=== PATIENT | male | born 1985 | race Caucasian/White ===

== ENCOUNTER 2020-05-03 02:17 | Emergency (ER) | payer SELFPAY ==
[2020-05-03 02:27] VITALS: BP 109/85; PULSE 91; RESP 16; TEMP 36.7; O2SAT 96; BMI 23.3
--- NOTE | 2020-05-03 02:29 | XRR_ITS ---
PROCEDURE INFORMATION: Exam: XR Right Hand Exam date and time: 05/03/2020 2:30 AM Age: 34 years old Clinical indication: Injury or trauma; Injury history: Punched window; Initial encounter; Blunt trauma (contusions or hematomas; Hand; Right TECHNIQUE: Imaging protocol: XR Right hand. Views: 3 or more views. COMPARISON: No relevant prior studies available. FINDINGS: Bones/joints: Normal. Soft tissues: Normal. XR/XR hand RT min 3V* [id number] IMPRESSION: No acute findings.
[2020-05-03 02:43] VITALS: BP 128/80; PULSE 86; RESP 16
--- NOTE | 2020-05-03 03:12 | W.ED.WOUNDLC ---
Documented by User: DAMIAN Ragsdale 05/03/20 03:27 HPI - Wound/Laceration General: Chief Complaint: Wound/Laceration Stated Complaint: R HAND INJURY Time Seen by Provider: 05/03/20 02:36 History of Present Illness: HPI narrative: Patient comes in after striking and breaking the glass at his home. Patient caused a laceration to the dorsal right hand. Patient is intoxicated. Patient appears well. Patient appears in mild pain. Review of Systems General: Reports: 10 or more systems reviewed and unremarkable except in HPI and below Musc: Reports: extremity pain Skin/Breast: Reports: other (Laceration right hand) [facility] ED PFSH: Social History Smoking and tobacco status: current every day smoker Physical Exam Const: COMMON NORMALS: no acute distress and patient oriented x3 GENERAL APPEARANCE: cooperative HENMT: COMMON NORMALS: normocephalic and Normal external nose present HEAD & SCALP: normal to inspection and normocephalic NOSE: Normal external nose present MOUTH: Normal oral and palatal mucosa present Eye: GENERAL EYE: appearance normal, both eyes and all related structures Neck/C-Spine: COMMON NORMALS: full ROM Chest: COMMONS NORMALS: normal inspection of the chest Resp: COMMON NORMALS: normal respiratory effort EFFORT & INSPECTION: Yes able to speak in complete sentences Cardio: COMMON NORMALS: regular rate and regular rhythm RATE: regular rate RHYTHM: regular rhythm GI: COMMON NORMALS: non-tender Back/Pelvis: COMMON NORMALS: thoracic and lumbar spine normal to inspection Extremity: NARRATIVE EXTREMITY EXAM: Laceration to the dorsal right hand. Exam of the wound notes tendon structure with full laceration. Patient is unable to extend the index finger of the right hand. Neuro: COMMON NORMALS: patient oriented x3 and moves all extremities Psych: COMMON NORMALS: mental status grossly normal and cooperative Skin: COMMON NORMALS: no rashes or lesions noted GENERAL SKIN EXAM: no rashes or lesions noted Procedures Laceration Laceration 1: Site: hand Side (If applicable): right Size (cm): 4 Description: flap Depth: simple, single layer and involves tendon Local Anesthetic: lidocaine 1% Amount of anesthesia used (mL): 6 Pre-repair: wound explored and irrigated extensively Skin layer closed with: nylon Size (cm): 5-0 Number of sutures: 6 Technique: simple, interrupted Course ED course: , Dr. James was consulted for concerns of tendon injury to the right hand. He agreed with assessment that extensor tendon was lacerated. He recommended going ahead and loosely closing wound and he would consult a hand surgeon for follow-up. wjw Vital Signs: Vital signs: Vital Signs Temperature 98.1 F 05/03/20 02:27 Pulse Rate 102 H 05/03/20 04:09 Respiratory Rate 24 H 05/03/20 04:09 Blood Pressure 128/80 05/03/20 02:43 Pulse Oximetry 96 05/03/20 04:09 MDM - Wound/Laceration MDM Narrative: Medical decision making narrative: Patient comes in today for complaints of injury to the right dorsal hand. Patient sustained a laceration when he put his hand through a glass window. On exam we noted extensor tendon injury to the right hand affecting the extension of the index finger. Capillary refill is intact. Exam was impeded by patient's intoxication. Pulses were noted at the radial. No bony injury was noted. Differential diagnosis includes laceration, tendon injury, foreign body. Examined wound did not note any foreign body or bony injury. It was noted that patient had a tendon injury seems to be affecting the index finger of the hand. Patient is unable to extend the index finger. Wound was loosely closed. Dr. James was consulted and he will talk with a hand surgeon for patient follow-up. Patient will need follow-up for repair of the tendon. Discharge Plan Discharge Patient Disposition: Home, Self-Care Clinical Impression: Laceration Extensor tendon laceration of wrist with open wound Qualifiers: Encounter type: initial encounter Laterality: right Qualified Code(s): S66.921A - Laceration of unspecified muscle, fascia and tendon at wrist and hand level, right hand, initial encounter Condition: Stable Prescriptions: [place] 5-325 mg tablet 1 tab PO Q6H PRN (Reason: pain) Qty: 10 RF: 0 Discharge Orders: Discharge Order (Routine); Ordered 05/03/20 Ordered By: Catrachito James Discharge Diet: Usual diet Discharge Activity: Limit activity as instructed Patient Instructions: Laceration (ED) Activity Restrictions/Additional Instructions: Stay in your splint until seen by hand surgery. Return for continued bleeding, worsening pain despite treatment, other concerning symptoms. Ice for pain and swelling. You will get a call from the emergency hand surgery clinic at the beginning of the week regarding surgery appointment for later in the week to fix your wrist tendons. If you do not hear from them, call the ER caseworker intake at [phone] and they will be able to put you in touch with hand surgery. Discharge Date/Time: 05/03/20 03:50 Coding Level of Care Code ED Truck Driver Rubbish Collector for Bettina Fwd Exam Comprehensive Documented by User: Catrachito James, 05/04/20 07:07 HPI - Wound/Laceration General: Chief Complaint: Wound/Laceration Stated Complaint: R HAND INJURY Time Seen by Provider: 05/03/20 02:36 PFSH ED PFSH: Social History Smoking and tobacco status: current every day smoker Course Vital Signs: Vital signs: Vital Signs Temperature 98.1 F 05/03/20 02:27 Pulse Rate 102 H 05/03/20 04:09 Respiratory Rate 24 H 05/03/20 04:09 Blood Pressure 128/80 05/03/20 02:43 Pulse Oximetry 96 05/03/20 04:09 MDM - Wound/Laceration MDM Narrative: Medical decision making narrative: This patient was originally seen by DAMIAN Simons. I agree with his history, assessment, and treatment. The wound was closed loosely, as the ECRL and ECRB tendons appear to be severed, with the inability to extend the second and third digits. Hand surgery in [place] was consulted. Dr. Mensah at [facility] agreed with treatment plan here, asked us to splint the patient in extension which is done, and have him follow-up as an outpatient for tendon repair early in the coming week. This will be arranged through [facility] case management. This was explained to the patient, and his family member apparent in the room. Discharge Plan Discharge Patient Disposition: Home, Self-Care Clinical Impression: Laceration Extensor tendon laceration of wrist with open wound Qualifiers: Encounter type: initial encounter Laterality: right Qualified Code(s): S66.921A - Laceration of unspecified muscle, fascia and tendon at wrist and hand level, right hand, initial encounter Condition: Stable Prescriptions: [place] 5-325 mg tablet 1 tab PO Q6H PRN (Reason: pain) Qty: 10 RF: 0 Discharge Orders: Discharge Order (Routine); Ordered 05/03/20 Ordered By: Catrachito James Discharge Diet: Usual diet Discharge Activity: Limit activity as instructed Patient Instructions: Laceration (ED) Activity Restrictions/Additional Instructions: Stay in your splint until seen by hand surgery. Return for continued bleeding, worsening pain despite treatment, other concerning symptoms. Ice for pain and swelling. You will get a call from the emergency hand surgery clinic at the beginning of the week regarding surgery appointment for later in the week to fix your wrist tendons. If you do not hear from them, call the ER caseworker intake at [phone] and they will be able to put you in touch with hand surgery. Discharge Date/Time: 05/03/20 03:50 Coding Level of Care Code ED Truck Driver Rubbish Collector for Bettina Fwmelisa Exam Comprehensive
--- NOTE | 2020-05-03 03:50 | PC.NURSE ---
Pt extremely combative, making verbal threats to swing at you people if you keep making it hurt when pressure applied to control bleeding or to apply volar splint
[2020-05-03 04:09] VITALS: PULSE 102; RESP 24; O2SAT 96
== END 2020-05-03 03:50 | disposition home or self-care (01) ==
PROVIDERS: Emergency Provider Emergency Medicine
DX: S61.411A Laceration without foreign body of right hand, initial encounter (principal); S66.320A Laceration of extensor muscle, fascia and tendon of right index finger at wrist and hand level, initial encounter; W25.XXXA Contact with sharp glass, initial encounter; F17.210 Nicotine dependence, cigarettes, uncomplicated
CPT/HCPCS: 12002; 12345; 73130; 99281; 99283

== ENCOUNTER 2020-05-14 17:35 | Emergency (ER) | payer SELFPAY ==
--- NOTE | 2020-05-14 17:36 | USR_ITS ---
PROCEDURE INFORMATION: Exam: US Scrotum Exam date and time: 05/14/2020 6:12 PM Age: 34 years old Clinical indication: Scrotum pain; Additional info: Testicle pain TECHNIQUE: Imaging protocol: Real-time ultrasound of the scrotum and contents with color Doppler and image documentation. COMPARISON: No relevant prior studies available. FINDINGS: Right testicle: Normal. No mass. No torsion. Normal vascular flow. Right testicle 4.1 cm x 2.6 cm x 3 cm. Left testicle: Normal. No mass. No torsion. Normal vascular flow. Left testicle 4.6 cm x 2.2 cm x 2.8 cm Epididymides: Normal. Right 7 mm x 13 mm, increased vascular flow right side if patient's clinical syndrome is in this area this finding may reflect epididymitis. left 3.8 mm x 6.5 mm Scrotum: Bilateral varicoceles bilateral hydrocele US/US scrotum [id number] IMPRESSION: 1. Negative for intrinsic testicular abnormality. 2. Bilateral hydrocele 3. Bilateral varicocele 4. Increased flow right epididymis possible epididymitis
[2020-05-14 17:39] VITALS: BP 144/83; PULSE 88; RESP 18; TEMP 36.9; O2SAT 98; BMI 24.1
--- NOTE | 2020-05-14 17:43 | ED_ITS ---
HPI - Male Genitourinary General: Chief complaint: Urogenital-Male Stated complaint: left testicle pain Time Seen by Provider: 05/14/20 17:39 Source: patient Mode of arrival: ambulatory Limitations: no limitations History of Present Illness: HPI Narrative: 34-year-old male states he had slight testicle pain and swelling over the last 2 days. He states is bilateral but worse on the right. He denies any fevers. He denies any dysuria. MD Complaint: testicle pain and testicle swelling Onset (ago): hour(s) Duration: constant Location: left testicle Severity: moderate Severity scale (1-10): 7 Quality: sharp Relieving factors: none Exacerbating factors: none Associated symptoms: Deny nausea or vomiting Review of Systems Const: Denies: fever(s), chills, body aches or change in appetite Eyes: Denies: blurry vision or eye discomfort ENMT: Denies: throat pain or dental pain Card: Denies: chest pain Resp: Denies: dyspnea GI: Denies: abdominal pain, nausea, vomiting or diarrhea : Reports: testicular pain and scrotal swelling Musc: Denies: neck pain or back pain Skin/Breast: Denies: rash Neuro: Denies: headache(s) Psych: Denies: depression Shola/Lymph: Denies: easy bruising All/Imm: Denies: urticaria PFSH ED PFSH: Social History Smoking and tobacco status: current every day smoker Physical Exam Const: COMMON NORMALS: no acute distress, patient oriented x3 and healthy appearing HENMT: COMMON NORMALS: normocephalic and atraumatic HEAD & SCALP: normocephalic and atraumatic Eye: COMMON NORMALS: Equal, round and reactive pupils present and EOMs intact bilaterally PUPIL: Yes Equal, round and reactive pupils present Neck/C-Spine: COMMON NORMALS: full ROM and supple Chest: COMMONS NORMALS: normal inspection of the chest and normal palpation of entire chest wall Resp: COMMON NORMALS: normal respiratory effort, No retractions, No use of accessory muscles and clear to auscultation bilaterally AUSCULTATION: clear to auscultation bilaterally Cardio: COMMON NORMALS: regular rate, regular rhythm and No murmurs present (Cardio) RATE: regular rate RHYTHM: regular rhythm GI: COMMON NORMALS: Normal to inspection, nondistended, normoactive bowel sounds present, Soft to palpation, non-tender and no masses PALPATION: Yes Soft to palpation : OTHER: tenderness and swelling in left testicle Extremity: COMMON NORMALS: normal to inspection and full ROM Neuro: COMMON NORMALS: patient oriented x3, moves all extremities and no focal motor deficits Psych: COMMON NORMALS: mental status grossly normal, Normal thought process present and cooperative THOUGHT PROCESS: Normal thought process present Skin: COMMON NORMALS: no rashes or lesions noted and no wounds GENERAL SKIN EXAM: no rashes or lesions noted Course Vital Signs: Vital signs: Vital Signs Temperature 98.4 F 05/14/20 17:39 Pulse Rate 90 05/14/20 18:18 Respiratory Rate 16 05/14/20 18:18 Blood Pressure 127/66 05/14/20 18:18 Pulse Oximetry 98 05/14/20 18:18 MDM - Male MDM Narrative: Medical decision making narrative: Patient presents here with testicle pain. Ultrasound shows hydrocele along with slight epididymitis. Patient's exam here is benign has no signs of torsion. Will place patient on doxycycline along with pain meds. Patient is return if worsening. Lab Data: Labs: Lab Results 05/14/20 Range/Units 18:08 Urine Color Straw (Yellow) Urine Appearance Clear (CLEAR) Urine pH 7 (5-7) Ur Specific Gravit y 1.005 (1.005-1.030) Urine Protein Neg (Negative) Urine Glucose (UA) Norm (Normal) Urine Ketones Negative (Negative) Urine Blood 2+ H (Negative) Urine Nitrate Negative (Negative) Urine Bilirubin Neg (NEGATIVE) Urine Urobilinogen Norm (Negative) mg/dL Ur Leukocyte Lulu ase Negative (Negative) Urine RBC 0-4 H (0-2) /hpf Urine WBC 0-4 H (0-5) /hpf Ur Squamous Epith Cells 0-4 H (0-5) Amorphous Sediment Not Reportable Urine Bacteria Trace (NONE) Imaging Data: us testicle: Attestation: I personally reviewed and interpreted this imaging study as follows: Radiologist's impression: [address] [address] Ultrasound Report Signed Patient: Ji Santiago Unit #: [id number] : 1985 Age/Sex: 34 / M ADM Date: 05/14/20 Loc: ER Room/Bed: Attending Dr: Ordering Provider/Ordering MD: Lucho Oliver MD Date of Service: 05/14/20 Procedure(s): US scrotum [id number] Accession Number(s): [id number] Report Number: [id number] PROCEDURE INFORMATION: Exam: US Scrotum Exam date and time: 05/14/2020 6:12 PM Age: 34 years old Clinical indication: Scrotum pain; Additional info: Testicle pain TECHNIQUE: Imaging protocol: Real-time ultrasound of the scrotum and contents with color Doppler and image documentation. COMPARISON: No relevant prior studies available. FINDINGS: Right testicle: Normal. No mass. No torsion. Normal vascular flow. Right testicle 4.1 cm x 2.6 cm x 3 cm. Left testicle: Normal. No mass. No torsion. Normal vascular flow. Left testicle 4.6 cm x 2.2 cm x 2.8 cm Epididymides: Normal. Right 7 mm x 13 mm, increased vascular flow right side if patient's clinical syndrome is in this area this finding may reflect epididymitis. left 3.8 mm x 6.5 mm Scrotum: Bilateral varicoceles bilateral hydrocele US/US scrotum [id number] IMPRESSION: 1. Negative for intrinsic testicular abnormality. 2. Bilateral hydrocele 3. Bilateral varicocele 4. Increased flow right epididymis possible epididymitis Discharge Plan Discharge Patient Disposition: Home, Self-Care Clinical Impression: Hydrocele of testis, Epididymitis Condition: Stable Prescriptions: [place] 5-325 mg tablet 1 tab PO Q6H PRN (Reason: pain) Qty: 14 RF: 0 doxycycline hyclate 100 mg capsule 100 mg PO BID 7 Days Qty: 14 RF: 0 No [place] 5-325 mg tablet 1 tab PO Q6H PRN (Reason: pain) Qty: 10 RF: 0 Discharge Orders: Discharge Order (Routine); Ordered 05/14/20 Ordered By: Lucho Oliver Referrals: Puja Carter FNP [Primary Care Provider] - Sammy Schuler MD [Physician] - 1-3 days Discharge Diet: Advance as tolerated Discharge Activity: Resume usual activity Patient Instructions: Epididymitis (ED) Coding Level of Care Code ED Kids [employer] Attendant for Chg Fwd Exam Comprehensive
[2020-05-14 18:09] VITALS: RESP 18; O2SAT 94
[2020-05-14] MEDS: morphine 4 mg/mL SDV 1 mL IM (18:09)
[2020-05-14 18:18] VITALS: BP 127/66; PULSE 90; RESP 16; O2SAT 98
--- NOTE | 2020-05-14 18:20 | PC.NURSE ---
pc to atif jaimes he stated that morhpine in er pyxis is able to be adm via im.
[2020-05-14 18:42] LABS: Add Urine Microscopic? YES; Bilirubin Urine Neg (NEGATIVE); Blood Urine 2+ (Negative); Glucose Urine UA Norm (Normal); Ketones Urine Negative (Negative); Leukocyte Esterase Urine Negative (Negative); Nitrate Urine Negative (Negative); Protein Urine Neg (Negative); Specific Gravity, Urine 1.005 (1.005-1.030); Urine Appearance Clear (CLEAR); Urine Color Straw (Yellow); Urobilinogen Urine Norm (Negative); pH Urine 7 (5-7)
[2020-05-14 18:43] LABS: Add Urine Culture? No; Bacteria Urine TRACE; RBC Urine 0-4 /hpf (0-2); Squamous Epithelial Cell Urine 0-4 (0-5); WBC Urine 0-4 /hpf (0-5)
--- NOTE | 2020-05-14 19:13 | PC.NURSE ---
report given to maryan shelton assumed care while at bedside pt is in nad.
[2020-05-14 20:01] VITALS: BP 134/72; PULSE 84; RESP 16; O2SAT 93
== END 2020-05-14 20:03 | disposition home or self-care (01) ==
PROVIDERS: Emergency Provider Emergency Medicine; PCP Nurse Practitioner
DX: N43.3 Hydrocele, unspecified (principal); N45.1 Epididymitis; F17.210 Nicotine dependence, cigarettes, uncomplicated
CPT/HCPCS: 12345; 76870; 81001; 81003; 96372; 99282; 99283; J2270

== ENCOUNTER 2020-11-07 16:23 | Emergency (ER) | payer SELFPAY ==
[2020-11-07 17:40] VITALS: BP 133/78; PULSE 93; RESP 18; TEMP 36.3; O2SAT 97; BMI 26.6
--- NOTE | 2020-11-07 17:54 | ED_ITS ---
HPI - Wound/Laceration General: Chief Complaint: Wound/Laceration Stated Complaint: WOUND/LACERATION Time Seen by Provider: 11/07/20 17:53 Source: patient Mode of arrival: ambulatory Limitations: no limitations History of Present Illness: HPI narrative: Patient comes in today with injuries to the right and left hand. Patient reports that he had slipped and fell putting his hand through a window. Patient has several superficial lacerations to both hands. 1 significant 1 to the right index finger. Normal range of motion is noted to the hand and finger. Review of Systems General: Reports: 10 or more systems reviewed and unremarkable except in HPI and below Skin/Breast: Reports: other (laceration) PFSH ED PFSH: Social History Smoking and tobacco status: current every day smoker Physical Exam Const: COMMON NORMALS: no acute distress and patient oriented x3 GENERAL APPEARANCE: cooperative HENMT: COMMON NORMALS: normocephalic and Normal external nose present HEAD & SCALP: normal to inspection and normocephalic NOSE: Normal external nose pr esent MOUTH: Normal oral and palatal mucosa present Eye: GENERAL EYE: appearance normal, both eyes and all related structures Neck/C-Spine: COMMON NORMALS: full ROM Chest: COMMONS NORMALS: normal inspection of the chest Resp: COMMON NORMALS: normal respiratory effort EFFORT & INSPECTION: Yes able to speak in complete sentences Cardio: COMMON NORMALS: regular rate and regular rhythm RATE: regular rate RHYTHM: regular rhythm GI: COMMON NORMALS: non-tender Extremity: COMMON NORMALS: normal to inspection Neuro: COMMON NORMALS: patient oriented x3 and moves all extremities Psych: COMMON NORMALS: mental status grossly normal and cooperative Skin: COMMON NORMALS: no rashes or lesions noted NARRATIVE SKIN EXAM: 2 significant lacerations to the right hand. One 3 cm laceration to the ulnar side of the right index finger. And one 1.5 cm laceration to the third knuckle of the right hand. Patient also has 2 superficial lacerations to the index finger on the left hand and the knuckle of the third digit on the left hand. GENERAL SKIN EXAM: no rashes or lesions noted Procedures Laceration Laceration 1: Site: hand Side (If applicable): right Size (cm): 3 Description: linear Depth: simple, single layer Local Anesthetic: lidocaine 1% Amount of anesthesia used (mL): 5 Pre-repair: wound explored and deep structures intact Size (cm): 5-0 Number of sutures: 7 Technique: simple, interrupted Laceration 2: Site: hand Side (If applicable): right Size (cm): 1.5 Description: linear Depth: simple, single layer Local Anesthetic: lidocaine 1% Amount of anesthesia used (mL): 2 Pre-repair: wound explored and irrigated extensively Skin layer closed with: nylon Size (cm): 5-0 Number of sutures: 3 Technique: simple, interrupted Laceration 3: Site: hand Side (If applicable): left Size (cm): 1 Description: linear Local Anesthetic: lidocaine 1% Amount of anesthesia used (mL): 1 Skin layer closed with: nylon Size (cm): 5-0 Number of sutures: 1 Technique: simple, interrupted Laceration 4: Site: hand Side (If applicable): left Size (cm): 1 Description: linear Depth: simple, single layer Local Anesthetic: lidocaine 1% Amount of anesthesia used (mL): 1 Pre-repair: wound explored Skin layer closed with: nylon Size (cm): 5-0 Number of sutures: 1 Technique: simple, interrupted Course Vital Signs: Vital signs: Vital Signs Temperature 97.3 F L 11/07/20 17:40 Pulse Rate 93 11/07/20 17:40 Respiratory Rate 18 11/07/20 17:40 Blood Pressure 133/78 11/07/20 17:40 Pulse Oximetry 97 11/07/20 17:40 MDM - Wound/Laceration MDM Narrative: Medical decision making narrative: Patient presents with injury to the right and left hand. Patient's hands both went through the window of a door. On exam patient has some superficial lacerations to the left hand. And then a more significant laceration to the right index finger and 2 other superficial lacerations to the right hand. Wounds were repaired with 5-0 nylon suture. Patient tolerated well. Patient will be placed on cephalexin for prophylaxis antibiotic. And medication for discomfort. Patient reported understanding of care plan and need for follow-up. Discharge Plan Discharge Patient Disposition: Home Clinical Impression: Laceration Condition: Stable Prescriptions: New cephalexin 500 mg capsule 500 mg PO TID 7 Days Qty: 21 RF: 0 Continued [place] 5-325 mg tablet 1 tab PO Q6H PRN (Reason: pain) Qty: 10 RF: 0 Discontinued hydrocodone-acetaminophen [[place]] 5-325 mg tablet 1 tab PO Q6H PRN (Reason: pain) Qty: 14 RF: 0 Discharge Orders: Discharge ED (Routine); Ordered 11/07/20 Ordered By: Emery Szymanski Referrals: Puja Carter FNP [Primary Care Provider] - Discharge Diet: Usual diet Patient Instructions: Suture Care (ED) Activity Restrictions/Additional Instructions: Keep wounds clean and dry for the next 48 hours. Avoid wound getting wet or soiled while sutures are in. Sutures out in 7 to 10 days. Follow-up with primary care for further evaluation and treatment. Return to the emergency department for new concerns. Stand Alone Forms: Work/School Release Coding Level of Care Code ED Broadcast Transmitter Operator for Bettina Fwd Exam Comprehensive
[2020-11-07 18:27] VITALS: PULSE 80; O2SAT 96
[2020-11-07] MEDS: lidocaine 1% INJ 20 mL INJECTION (18:30)
[2020-11-07 18:37] VITALS: PULSE 80; O2SAT 98
== END 2020-11-07 18:39 | disposition home or self-care (01) ==
PROVIDERS: Emergency Provider Nurse Practitioner Family; PCP Nurse Practitioner
DX: S61.412A Laceration without foreign body of left hand, initial encounter (principal); S61.411A Laceration without foreign body of right hand, initial encounter; S61.210A Laceration without foreign body of right index finger without damage to nail, initial encounter; S61.211A Laceration without foreign body of left index finger without damage to nail, initial encounter; W01.110A Fall on same level from slipping, tripping and stumbling with subsequent striking against sharp glass, initial encounter; F17.210 Nicotine dependence, cigarettes, uncomplicated
CPT/HCPCS: 12002; 12345; 99281; 99282; 99291

== ENCOUNTER 2020-12-06 00:22 | Emergency (ER) | payer SELFPAY ==
[2020-12-06 00:32] VITALS: BP 113/63; PULSE 79; RESP 17; TEMP 36.6; O2SAT 96; BMI 26.6
--- NOTE | 2020-12-06 00:44 | XRR_ITS ---
PROCEDURE INFORMATION: Exam: XR Chest, 1 View Exam date and time: 12/06/2020 12:46 AM Age: 35 years old Clinical indication: Patient HX: Syncopal episode. Cough. ETOH. Best film obtained. Additional info: Syncope, cough. TECHNIQUE: Imaging protocol: XR of the chest Views: 1 view. COMPARISON: No relevant prior studies available. FINDINGS: Lungs: Unremarkable. No consolidation. Pleural spaces: Unremarkable. No pleural effusion. No pneumothorax. Heart/Mediastinum: Unremarkable. No cardiomegaly. Bones/joints: No emergent findings identified. XR/XR chest 1V portable [id number] IMPRESSION: 1. No acute findings.
--- NOTE | 2020-12-06 00:46 | XRR_ITS ---
PROCEDURE INFORMATION: Exam: XR Right Hand Exam date and time: 12/06/2020 1:03 AM Age: 35 years old Clinical indication: Injury or trauma; Fall; Blunt trauma (contusions or hematomas); Prior surgery; Patient HX: Sustained blow to right hand this AM swelling to ventral surface of hand. History of abscess formation and extensor tendonitis. ETOH best positioning obtained. TECHNIQUE: Imaging protocol: XR Right hand. Views: 3 or more views. COMPARISON: CR XR hand RT min 3V* [id number] 05/03/2020 3:14 AM FINDINGS: Bones/joints: No fractures or dislocations identified. No significant bony abnormality identified. Soft tissues: No subcutaneous gas or radiopaque foreign body identified. XR/XR hand RT min 3V* [id number] IMPRESSION: 1. No acute findings.
[2020-12-06 01:08] LABS: Basophils # 0.1 10^3/uL (0.0-0.1); Basophils % 0.8 %; Eosinophils # 0.1 10^3/uL (0.0-0.8); Eosinophils % 1.2 %; Hematocrit 48.8 % (42.0-52.0); Hemoglobin 15.7 g/dL (11.7-16.6); Lymphocytes # 3.8 10^3/uL (0.8-4.8); Lymphocytes % 42.6 %; Mean Corpuscular HGB Conc 32.2 g/dL (30.0-36.0); Mean Corpuscular Hemoglobin 27.1 pg (28.0-34.0); Mean Corpuscular Volume 84.1 fL (80-94); Mean Platelet Volume 10.6 fL (7.4-10.4); Monocytes # 0.7 10^3/uL (0.2-0.9); Monocytes % 7.8 %; Neutrophils # 4.23 10^3/uL (1.8-7.7); Neutrophils % 47.3 %; Nucleated Red Blood Cells % 0 %; Platelet Count 312 10^3/cmm (130-400); Red Cell Distribution Width 13.2 % (12.1-15.1)
[2020-12-06] MEDS: morphine 4 mg/mL SDV 1 mL IVP (01:25)
[2020-12-06 01:26] VITALS: PULSE 85; RESP 16; O2SAT 98
[2020-12-06] MEDS: albuterol 8 gm MDI 4 PUFF INHALATION (01:26)
[2020-12-06] MEDS: ondansetron 2 mg/ML SDV 2 mL 4 MG IVP (01:30)
[2020-12-06 01:39] VITALS: PULSE 87
[2020-12-06] MEDS: sodium chloride 0.9% 1,000 ML 999 ML IV (01:40)
--- NOTE | 2020-12-06 02:06 | ED_ITS ---
HPI - General Adult General: Chief complaint: General Medical Stated complaint: etoh and syncope Time Seen by Provider: 12/06/20 00:28 History of Present Illness: HPI narrative: 35-year-old male presenting with acute alcohol intoxication, and a syncopal episode. His fianc?e states that he had had a syncopal episode, associated with coughing which concerned her. Evidently, something had fallen on his hand earlier in the evening causing him pain. He has previous injury to this hand with some chronic pain to the hand as well as well as some swelling. Because of the pain, the patient drank some alcohol. He had begun coughing earlier in the evening, and vomited a couple of times. During one of his coughing spells, he passed out for several seconds. That is when paramedics were called. He is somewhat cantankerous on interview, and not wanting to answer questions Onset (ago): hour(s) Location: upper extremity Severity: moderate Quality: aching Pain Consistency: constant Associated symptoms: Reports cough, nausea and vomiting; Deny chest pain, dyspnea, fevers/chills, headache(s), palpitations or short of breath Review of Systems Const: Denies: fever(s) or chills Eyes: Denies: change in vision Card: Denies: chest pain or palpitations Resp: Denies: dyspnea GI: Reports: nausea and vomiting Neuro: Denies: headache(s) PFSH ED PFSH: Social History Smoking and tobacco status: current every day smoker Physical Exam Const: EXAM LIMITATIONS: behavioral limitations GENERAL APPEARANCE: odor of alcohol detected; not ill appearing Chest: COMMONS NORMALS: normal inspection of the chest Resp: COMMON NORMALS: normal respiratory effort, No retractions and No use of accessory muscles AUSCULTATION: no crackles, no rales, no rhonchi and wheezes Cardio: COMMON NORMALS: regular rate, regular rhythm and No murmurs present (Cardio) RATE: regular rate RHYTHM: regular rhythm GI: COMMON NORMALS: Normal to inspection, nondistended, normoactive bowel sounds present and Soft to palpation PALPATION: Yes Soft to palpation Extremity: NARRATIVE EXTREMITY EXAM: Examination right hand reveals some swelling of the dorsum of the hand. There is surgical scarring in the area. There is no cellulitic change. No rotational deformity. There is some limitation on flexion, which is chronic. Neuro: COMMON NORMALS: no focal motor deficits SPEECH: Other neuro speech findings Psych: ATTITUDE: Yes Guarded attititude/behavior present and Yes Belligerent attititude/behavior present ACTIVITY/MOTOR BEHAVIOR: Yes psychomotor slowing SPEECH: Yes slurred MOOD & AFFECT: Yes irritable THOUGHT PROCESS: Ci rcumstantial thought process present Course Vital Signs: Vital signs: Vital Signs Temperature 97.8 F 12/06/20 00:32 Pulse Rate 87 12/06/20 01:39 Respiratory Rate 16 12/06/20 01:26 Blood Pressure 113/63 12/06/20 00:32 Pulse Oximetry 98 12/06/20 01:26 MDM - General Adult MDM Narrative: Medical decision making narrative: 35-year-old intoxicated male. Hand x-rays negative for acute fracture chest x-ray is negative. Patient refused a head CT. His CBC is normal. Other labs are pending. The patient tore out his own IV, the site of which is wrapped. He is not homicidal nonsuicidal. He will be allowed discharge pending benign labs Lab Data: Labs: Lab Results 12/06/20 12/06/20 Range/Units 00:34 00:34 WBC 9.0 (4.0-10.0) 10^3/ uL RBC 5.80 H (4.1-5.3) 10^6/u L Hgb 15.7 (11.7-16.6) g/dL Hct 48.8 (42.0-52.0) % MCV 84.1 (80-94) fL MCH 27.1 L (28.0-34.0) pg MCHC 32.2 (30.0-36.0) g/dL RDW 13.2 (12.1-15.1) % Plt Count 312 (130-400) 10^3/c mm MPV 10.6 H (7.4-10.4) fL Neut % (Auto) 47.3 % Lymph % (Auto) 42.6 % [place] % (Auto) 7.8 % Eos % (Auto) 1.2 % Baso % (Auto) 0.8 % Neut # (Auto) 4.23 (1.8-7.7) 10^3/u L Lymph # (Auto) 3.8 (0.8-4.8) 10^3/u L [place] # (Auto) 0.7 (0.2-0.9) 10^3/u L Eos # (Auto) 0.1 (0.0-0.8) 10^3/u L Baso # (Auto) 0.1 (0.0-0.1) 10^3/u L Nucleated RBC % (a uto) 0 % Nucleated RBCs # 0.0 /100WBC Sodium 142 (136-145) mmol/L Potassium 3.6 (3.5-5.1) mmol/L Chloride 102 (98-107) mmol/L Carbon Dioxide 22 (22-29) mmol/L BUN 8 (6-20) mg/dL Creatinine 1.0 (0.7-1.2) mg/dL Glucose 91 (65-115) mg/dL Calculated Osmolal ity 292 (285-295) mOsm/k g Calcium 9.4 (8.5-10.5) mg/dL Magnesium 2.3 (1.7-2.3) mg/dL Total Bilirubin 0.2 (0.15-1.2) mg/dL AST 21 (0-40) U/L ALT 16 (0-41) U/L Alkaline Phosphata se 85 (40-130) IU/L Total Protein 8.0 (6.6-8.7) g/dL Albumin 4.9 (3.5-5.2) g/dL Globulin 3.1 (1.3-4.6) g/dL Discharge Plan Discharge Patient Disposition: Home Clinical Impression: Alcohol intoxication, Post-tussive syncope Condition: Stable Prescriptions: No Action No Known Home Medications RF: 0 Discharge Orders: Discharge ED (Routine); Ordered 12/06/20 Ordered By: Catrachito James Referrals: Puja Carter FNP [Primary Care Provider] - Discharge Diet: Advance as tolerated Discharge Activity: Increase activity as tolerated Patient Instructions: Syncope (ED), Alcohol Intoxication (ED) Activity Restrictions/Additional Instructions: Make sure you stay hydrated. Return for repeated episodes of syncope or passing out, chest discomfort, shortness of breath, fever greater than 100, other concerning symptoms. Return also for worsening cough. Coding Level of Care Code ED Crop Farm Helper for Chg Fwd Exam Detailed
[2020-12-06 02:13] LABS: Alanine Aminotransferase 16 U/L (0-41); Albumin Level 4.9 g/dL (3.5-5.2); Alkaline Phosphatase 85 IU/L (40-130); Anion Gap 21.6 (5-19); Aspartate Amino Transferase 21 U/L (0-40); Blood Urea Nitrogen 8 mg/dL (6-20); Calcium 9.4 mg/dL (8.5-10.5); Carbon Dioxide 22 mmol/L (22-29); Chloride 102 mmol/L (98-107); Globulin 3.1 g/dL (1.3-4.6); Glomerular Filtration Rate 86.1 mL/min (90-130); Glucose 91 mg/dL (65-115); Magnesium 2.3 mg/dL (1.7-2.3); Osmolality Calculated 292 mOsm/kg (285-295); Potassium 3.6 mmol/L (3.5-5.1); Sodium 142 mmol/L (136-145); Total Bilirubin 0.2 mg/dL (0.15-1.2)
[2020-12-06 02:30] LABS: Alcohol Level 302 mg/dL (0-10)
--- NOTE | 2020-12-06 02:34 | PC.NURSE ---
pt becoming increasingly argumentative, removing IV without staff present. IV site dressed with cotton ball and coban. Pt stating he no longer wishes to stay in ED, requesting to be discharged. notified, ok with pt request for discharge. Pt able to stand and walk without difficulties and answer A&O questions appropriately to self and place. Pt refusing to sign discharge paperwork. Pt able to leave with significant other with out further difficulties or complaints
== END 2020-12-06 02:20 | disposition home or self-care (01) ==
PROVIDERS: Emergency Provider Emergency Medicine; PCP Nurse Practitioner
DX: R05 Cough (principal); R55 Syncope and collapse; F10.129 Alcohol abuse with intoxication, unspecified; Y90.9 Presence of alcohol in blood, level not specified; F17.210 Nicotine dependence, cigarettes, uncomplicated
CPT/HCPCS: 12345; 71045; 73130; 80053; 80307; 83735; 85025; 94640; 96361; 96374; 96375; 99282; 99283; J2270; J2405; J3535; J7030

== ENCOUNTER 2021-02-12 18:37 | Emergency (ER) | payer SELFPAY ==
[2021-02-12 18:45] VITALS: BP 151/112; PULSE 77; RESP 18; TEMP 36.6; O2SAT 96; BMI 27.4
[2021-02-12 20:28] VITALS: BP 153/100; PULSE 89; RESP 17; O2SAT 97
--- NOTE | 2021-02-12 20:47 | ED_ITS ---
HPI - Back Pain/Injury General: Chief Complaint: Back Pain/Injury Stated Complaint: Back Pain Time Seen by Provider: 02/12/21 20:14 Source: patient Mode of arrival: ambulatory Limitations: no limitations History of Present Illness: HPI Narrative: 35-year-old male who presents here with low back pain. States been having back pain over the last 4 to 5 days. States his left lower back and does radiate down to his left leg to the thigh. He states is worse with movement and bending. States is improved with rest. States pain is currently a 4 out of 10. He states he does a lot of lifting at work but does not remember any specific injury. MD elicited complaint: back pain Associated symptoms: Deny abdominal pain, chills, dysuria, fever(s), nausea or vomiting Review of Systems Const: Denies: fever(s), chills, body aches or change in appetite Eyes: Denies: blurry vision or eye discomfort ENMT: Denies: throat pain or dental pain Card: Denies: chest pain Resp: Denies: dyspnea GI: Denies: abdominal pain, nausea, vomiting or diarrhea : Denies: dysuria Musc: Reports: back pain; Denies: neck pain Skin/Breast: Denies: rash Neuro: Denies: headache(s) Psych: Denies: depression Shola/Lymph: Denies: easy bruising All/Imm: Denies: urticaria PFSH ED PFSH: Social History Smoking and tobacco status: current every day smoker Physical Exam Const: COMMON NORMALS: no acute distress, patient oriented x3 and healthy appearing HENMT: COMMON NORMALS: normocephalic and atraumatic HEAD & SCALP: normocephalic and atraumatic Eye: COMMON NORMALS: Equal, round and reactive pupils present and EOMs intact bilaterally PUPIL: Yes Equal, round and reactive pupils present Neck/C-Spine: COMMON NORMALS: full ROM and supple Chest: COMMONS NORMALS: normal inspection of the chest and normal palpation of entire chest wall Resp: COMMON NORMALS: normal respiratory effort, No retractions, No use of accessory muscles and clear to auscultation bilaterally AUSCULTATION: clear to auscultation bilaterally Cardio: COMMON NORMALS: regular rate, regular rhythm and No murmurs present (Cardio) RATE: regular rate RHYTHM: regular rhythm GI: COMMON NORMALS: Normal to inspection, nondistended, normoactive bowel sounds present, Soft to palpation, non-tender and no masses PALPATION: Yes Soft to palpation Back/Pelvis: OTHER: Tenderness over left lower back with no midline tenderness Extremity: COMMON NORMALS: normal to inspection and full ROM Neuro: COMMON NORMALS: patient oriented x3, moves all extremities and no focal motor deficits Psych: COMMON NORMALS: mental status grossly normal, Normal thought process present and cooperative THOUGHT PROCESS: Normal thought process present Skin: COMMON NORMALS: no rashes or lesions noted and no wounds GENERAL SKIN EXAM: no rashes or lesions noted Course Vital Signs: Vital signs: Vital Signs Temperature 97.8 F 02/12/21 18:45 Pulse Rate 89 02/12/21 20:28 Respiratory Rate 17 02/12/21 20:28 Blood Pressure 153/100 02/12/21 20:28 Pulse Oximetry 97 02/12/21 20:28 MDM - Back Pain/Injury MDM Narrative: Medical decision making narrative: Patient presents with low back pain that is likely muscular in nature. Give him stretches for his piriformis. We will place him on Naprosyn and Robaxin he is to ice. He has no signs of mid back pain or epidural abscess. He is stable for discharge and return if worsening. Discharge Plan Discharge Patient Disposition: Home Clinical Impression: Low back pain Qualifiers: Chronicity: acute Back pain laterality: left Sciatica presence: with sciatica Sciatica laterality: sciatica of left side Qualified Code(s): M54.42 - Lumbago with sciatica, left side Condition: Stable Prescriptions: New Robaxin-750 750 mg tablet 750 mg PO Q6H Qty: 30 RF: 0 Naprosyn 500 mg tablet 500 mg PO BID PRN (Reason: pain) Qty: 20 RF: 0 Discharge Orders: Discharge ED (Routine); Ordered 02/12/21 Ordered By: Lucho Oliver Discharge Diet: Advance as tolerated Discharge Activity: Resume usual activity Patient Instructions: Piriformis Syndrome (ED), Back Pain (ED) Coding Level of Care Code ED Production Corrugator for Bettina Zapata
[2021-02-12] MEDS: dexamethasone 10 mg/mL INJ IM (21:36)
[2021-02-12] MEDS: ketorolac 60 mg/2 mL INJ IM (21:36)
[2021-02-12 21:44] VITALS: PULSE 83; RESP 18; O2SAT 98
== END 2021-02-12 21:45 | disposition home or self-care (01) ==
PROVIDERS: Emergency Provider Emergency Medicine
DX: M54.42 Lumbago with sciatica, left side (principal); F17.210 Nicotine dependence, cigarettes, uncomplicated
CPT/HCPCS: 96372; 99283; J1100; J1885

== ENCOUNTER 2021-05-23 13:00 | Emergency (ER) | payer SELFPAY ==
[2021-05-23 13:05] VITALS: BP 136/84; PULSE 91; RESP 16; TEMP 36.7; O2SAT 95; BMI 27.8
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
[2021-05-23] MEDS: bacitracin ointment Pkt 1 EACH TOPICAL (15:47)
== END 2021-05-23 15:48 | disposition home or self-care (01) ==
PROVIDERS: Emergency Provider Physician Assistant
DX: S01.511A Laceration without foreign body of lip, initial encounter (principal); R68.84 Jaw pain; F17.210 Nicotine dependence, cigarettes, uncomplicated; W20.8XXA Other cause of strike by thrown, projected or falling object, initial encounter
CPT/HCPCS: 12011; 70450; 70486; 99283

== ENCOUNTER 2022-05-11 17:46 | Emergency (ER) | payer SELFPAY ==
[2022-05-11 17:57] VITALS: BMI 29.9
[2022-05-11 18:02] VITALS: BP 124/87; PULSE 87; RESP 18; TEMP 37.1; O2SAT 97
--- NOTE | 2022-05-11 19:41 | ED_ITS ---
HPI - Back Pain/Injury General: Chief Complaint: Back Pain/Injury Stated Complaint: Back pain Time Seen by Provider: 05/11/22 18:37 History of Present Illness: 36-year-old male patient comes in today with exacerbation of low back pain. Patient has some problems with his back but 2 da ys ago he was going to stand up from sitting when he had a sudden twinge in the left lower part of his back. Since then he has had difficulty with standing upright. Patient denies any problems with bowel or bladder. Patient reports no fever. Patient appears in moderate pain. Patient appears nontoxic. Review of Systems General: Reports: 10 or more systems reviewed and unremarkable except in HPI and below Card: Denies: chest pain Resp: Denies: dyspnea Musc: Reports: back pain PFS ED PFSH: Social History Smoking and tobacco status: current every day smoker Physical Exam Const: COMMON NORMALS: alert Neck/C-Spine: COMMON NORMALS: full ROM Chest: COMMONS NORMALS: normal inspection of the chest Resp: COMMON NORMALS: normal respiratory effort and clear to auscultation bilaterally AUSCULTATION: clear to auscultation bilaterally Cardio: COMMON NORMALS: regular rate RATE: regular rate Back/Pelvis: LUMBAR SPINE/LOWER BACK: Yes lumbar spinal tenderness Lumbar spinal tenderness location: L5 and Yes paraspinal muscle tenderness Extremity: COMMON NORMALS: normal to inspection NARRATIVE EXTREMITY EXAM: Leg lift test positive left side at 45 degrees Neuro: SENSORIUM/ORIENTATION: Yes alert Skin: COMMON NORMALS: no rashes or lesions noted GENERAL SKIN EXAM: no rashes or lesions noted Course Vital Signs: Vital signs: Vital Signs Temperature 98.8 F 05/11/22 18:02 Pulse Rate 87 05/11/22 18:02 Respiratory Rate 18 05/11/22 18:02 Blood Pressure 124/87 05/11/22 18:02 Pulse Oximetry 97 05/11/22 18:02 MDM - Back Pain/Injury Medical Decision Making 36-year-old male patient comes in with low back pain. On exam patient has muscle tenderness in the lumbar spine bilaterally. Patient also has some bilateral muscle tightness. Patient had more tenderness in the left lower L4-L5 region of the back. Vital signs are normal. Differential diagnosis includes but not limited to facet arthropathy, intervertebral disc disease, lumbar strain. No signs of cauda equina was noted on exam. Believe the patient probably has a lumbar strain and may be some chronic intervertebral disc disease that he should have followed up with outpatient. Patient was treated with pain meds for control. Patient was recommended to follow-up with primary care but reported understanding. Discharge Plan Discharge Patient Disposition: Home Clinical Impression: Strain of lumbar region Qualifiers: Encounter type: initial encounter Qualified Code(s): S39.012A - Strain of muscle, fascia and tendon of lower back, initial encounter Condition: Stable Prescriptions: New diclofenac potassium 50 mg tablet 50 mg PO TID Qty: 15 0RF hydrocodone-acetaminophen 5-325 mg tablet 1 tab PO Q6H PRN (Reason: pain (scale score 7-10)) Qty: 7 0RF tizanidine 4 mg tablet 4 mg PO TID Qty: 15 0RF No Action neomycin-polymyxin B-dexameth [Maxitrol] 3.5mg/mL-10,000 unit/mL-0.1 % drops,suspension 2 drp ophthalmic (eye) QID 7 Days Qty: 5 0RF Rx Instructions: Route-Ears to treat Otits Externa Discharge Orders: Discharge ED (Routine); Ordered 05/11/22 Ordered By: Emery Szymanski Discharge Diet: Usual diet Discharge Activity: Increase activity as tolerated Patient Instructions: Low Back Strain (ED), Lower Back Exercises (ED), Opioid Safety Activity Restrictions/Additional Instructions: Activity as tolerated. Gentle stretching and range of motion activities. Is important to resume normal activity as soon as possible. Drink plenty of water with medication. Use acetaminophen with the diclofenac to control the pain. Use tizanidine for muscle spasms. Use hydrocodone for severe pain. Do not use hydrocodone while driving or operating any equipment where you may injure yourself or others. Follow-up with primary care in 2 days for recheck. Return to ER for worsening symptoms or new concerns. Stand Alone Forms: Work/School Release Coding Level of Care Code ED Crater And Packer for Bettina Zapata
[2022-05-11] MEDS: dexamethasone 10 mg/mL INJ IM (20:47)
[2022-05-11] MEDS: ketorolac 30 mg/mL INJ IM (20:48)
[2022-05-11] MEDS: orphenadrine 30 mg/mL Inj 2 mL 60 MG IM (20:48)
== END 2022-05-11 21:29 | disposition home or self-care (01) ==
PROVIDERS: Emergency Provider Nurse Practitioner Family
DX: S39.012A Strain of muscle, fascia and tendon of lower back, initial encounter (principal); F17.210 Nicotine dependence, cigarettes, uncomplicated; X58.XXXA Exposure to other specified factors, initial encounter
CPT/HCPCS: 96372; 99284; J1100; J1885; J2360

== ENCOUNTER 2022-08-07 06:54 | Emergency (ER) | payer OTHER, SELFPAY ==
[2022-08-07 06:56] VITALS: BP 157/102; PULSE 98; RESP 18; TEMP 36.4; O2SAT 97
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
[2022-08-07 07:27] VITALS: BP 139/94; PULSE 90; RESP 16; O2SAT 98
[2022-08-07 07:35] LABS: Bilirubin Urine Negative (Negative); Blood Urine Small (Negative); Glucose Urine UA Negative (Normal); Ketones Urine Negative (Negative); Leukocyte Esterase Urine Negative (Negative); Nitrate Urine Negative; Protein Urine Negative; Urine Appearance Clear (CLEAR); Urobilinogen Urine 0.2 mg/dL (Negative)
[2022-08-07 07:45] LABS: Urine Color Light Yellow (Yellow)
[2022-08-07 07:46] LABS: Add Urine Culture? No; Add Urine Microscopic? YES; Bacteria Urine TRACE /hpf; RBC Urine 0-4 /hpf (0-2)
[2022-08-07 08:18] VITALS: BP 138/84; PULSE 88; RESP 19; O2SAT 96
[2022-08-07 08:34] LABS: Basophils # 0.1 10^3/uL (0.0-0.1); Basophils % 0.7 %; Eosinophils # 0.1 10^3/uL (0.0-0.8); Eosinophils % 1.3 %; Lymphocytes # 1.8 10^3/uL (0.8-4.8); Lymphocytes % 26.1 %; Mean Corpuscular Hemoglobin 27.4 pg (28.0-34.0); Mean Corpuscular Volume 85.8 fl (80-94); Mean Platelet Volume 10.2 fL (7.4-10.4); Monocytes # 0.4 10^3/uL (0.2-0.9); Monocytes % 6.3 %; Neutrophils # 4.51 10^3/uL (1.8-7.7); Neutrophils % 64.6 %; Nucleated Red Blood Cells % 0 %; Platelet Count 289 10^3/cmm (130-400); Red Blood Count 5.83 10^6/uL (4.1-5.3); Red Cell Distribution Width 13.7 % (12.1-15.1)
[2022-08-07 08:47] LABS: Alanine Aminotransferase 19 U/L (0-41); Albumin Level 4.7 g/dL (3.5-5.2); Alcohol Level 186 mg/dL (0-10); Alkaline Phosphatase 89 U/L (40-130); Blood Urea Nitrogen 10 mg/dL (6-20); Calcium 9.1 mg/dL (8.5-10.5); Carbon Dioxide 25 mmol/L (22-29); Chloride 104 mmol/L (98-107); Globulin 2.8 g/dL (1.3-4.6); Glucose 89 mg/dL (65-115); Osmolality Calculated 291 mOsm/kg (285-295); Sodium 141 mmol/L (136-145); Total Bilirubin 0.2 mg/dL (0.15-1.2); Total Protein 7.5 g/dL (6.6-8.7)
[2022-08-07 09:02] LABS: Anion Gap 16.3 (5-19); Potassium 4.3 mmol/L (3.5-5.1)
[2022-08-07 09:03] LABS: Aspartate Amino Transferase 21 U/L (0-40)
[2022-08-07 09:30] VITALS: PULSE 78; O2SAT 98
--- NOTE | 2022-08-07 09:30 | PC.NURSE ---
pt refused knee xray
== END 2022-08-07 09:33 | disposition home or self-care (01) ==
PROVIDERS: Emergency Provider Family Medicine
DX: F10.129 Alcohol abuse with intoxication, unspecified (principal); Y90.6 Blood alcohol level of 120-199 mg/100 ml; V48.0XXA Car driver injured in noncollision transport accident in nontraffic accident, initial encounter
CPT/HCPCS: 36415; 70450; 72125; 80053; 80307; 81001; 85025; 99284

== ENCOUNTER 2022-09-26 20:46 | Emergency (ER) | payer SELFPAY ==
[2022-09-26 21:09] VITALS: BMI 30.4
[2022-09-26 21:12] VITALS: BP 151/93; PULSE 78; RESP 16; TEMP 36.7; O2SAT 97
--- NOTE | 2022-09-27 00:05 | CTR_ITS ---
PROCEDURE INFORMATION: Exam: CT Abdomen And Pelvis With Contrast Exam date and time: 09/27/2022 12:11 AM Age: 37 years old Clinical indication: Abdominal pain; Additional info: Rlq pain TECHNIQUE: Imaging protocol: Computed tomography of the abdomen and pelvis with contrast. Radiation optimization: All CT scans at this facility use at least one of these dose optimization techniques: automated exposure control; mA and/or kV adjustment per patient size (includes targeted exams where dose is matched to clinical indication); or iterative reconstruction. Contrast material: OMNIPAQUE 350; Contrast volume: 100 ml; Contrast route: INTRAVENOUS (IV); COMPARISON: No relevant prior studies available. RADIATION DOSE METRICS: Total DLP (mGy-cm): 702.63 FINDINGS: Lungs: The lung bases are clear. Liver: There is a very small 3 mm low attenuation area in the dome of the right lobe of the liver. The appearance is nonspecific, but statistically this most likely represents a small cyst or cavernous hemangioma. Gallbladder and bile ducts: The gallbladder appears partially contracted. No visible gallstones by CT. Ultrasound would be more sensitive for detecting gallstones, if clinically needed. No biliary tree dilation. Pancreas: Unremarkable. Spleen: Unremarkable. Adrenal glands: Unremarkable. Kidneys and ureters: No hydronephrosis of either kidney. No visible ureteral calculus. No perinephric fluid. The kidneys enhance homogeneously. Stomach and bowel: No significant bowel distention. There are no CT findings to strongly suggest diverticulitis. Appendix: The appendix is visualized and appears normal. Intraperitoneal space: No free intraperitoneal air, or ascites. Vasculature: No evidence for abdominal aortic aneurysm. Lymph nodes: No retroperitoneal adenopathy. Urinary bladder: Possibly some mild diffuse urinary bladder wall thickening. Evaluation is somewhat limited, as the bladder is not well distended. While nonspecific, this could indicate evidence for cystitis. Please correlate clinically. No visible calculus in the urinary bladder. Reproductive: Essentially unremarkable for age. Bones/joints: There is bilateral L5 spondylolysis, no significant/obvious spondylolisthesis. Soft tissues: No significant acute finding. CT/CT abdomen pelvis w con* [id number] IMPRESSION: 1. Normal appendix. 2. No free air or significant bowel distention. 3. Possible mild urinary bladder wall thickening, see above. 4. No hydronephrosis of either kidney. No visible ureteral calculus. 5. Other findings discussed above.
[2022-09-27] MEDS: ondansetron 2 mg/ML SDV 2 mL 4 MG IVP (00:06)
[2022-09-27] MEDS: morphine 4 mg/mL SDV 1 mL IVP (00:06)
[2022-09-27] MEDS: sodium chloride 0.9% 1,000 ML 999 ML IV (00:06)
[2022-09-27] MEDS: iohexol 350 mg/mL 500 mL Btl (per mL) IV (00:08)
[2022-09-27 00:10] LABS: Basophils # 0.1 10^3/uL (0.0-0.1); Basophils % 0.7 %; Eosinophils # 0.2 10^3/uL (0.0-0.8); Eosinophils % 1.7 %; Hematocrit 48.9 % (42.0-52.0); Hemoglobin 15.9 g/dL (11.7-16.6); Lymphocytes % 30.4 %; Mean Corpuscular HGB Conc 32.5 g/dL (30.0-36.0); Mean Corpuscular Hemoglobin 27.8 pg (28.0-34.0); Mean Corpuscular Volume 85.5 fl (80-94); Mean Platelet Volume 9.9 fL (7.4-10.4); Monocytes # 0.7 10^3/uL (0.2-0.9); Monocytes % 7.4 %; Neutrophils # 5.91 10^3/uL (1.8-7.7); Neutrophils % 59.4 %; Nucleated Red Blood Cells % 0 %; Platelet Count 291 10^3/cmm (130-400); Red Blood Count 5.72 10^6/uL (4.1-5.3); Red Cell Distribution Width 13.5 % (12.1-15.1)
[2022-09-27 00:19] LABS: Add Urine Microscopic? YES; Bilirubin Urine Neg (Negative); Blood Urine 2+ (Negative); Glucose Urine UA Norm (Normal); Ketones Urine Negative (Negative); Leukocyte Esterase Urine Negative (Negative); Nitrate Urine Negative (Negative); Protein Urine Neg (Negative); Specific Gravity, Urine 1.005 (1.005-1.030); Urine Appearance Clear (CLEAR); Urine Color Yellow (Yellow); Urobilinogen Urine Neg (Negative); pH Urine 6.5 (5-7)
--- NOTE | 2022-09-27 00:21 | W.ED.ABDPA2 ---
HPI - Abdominal Pain General: Chief Complaint: Abdominal Pain Stated Complaint: ABD Pain Rt Side Time Seen by Provider: 09/26/22 23:49 Source: patient History of Present Illness: 37-year-old healthy male complains of right-sided abdominal pain that started last night, but became worse today. He vomited earlier in the evening. He has not been overly hungry. No fever, no diarrhea. No blood in his urine no dysuria. MD elicited complaint: abdominal pain Pertinent past history: none Onset (ago): hour(s) Pain Consistency: constant Location: RLQ and R flank Severity: moderate Radiation: none Migration to: no migration Exacerbating factors: movement Relieving factors: nothing Associated Symptoms: Reports vomiting; Denies bloating, coffee ground emesis, diarrhea, dysuria, fever(s), hematuria and melena Review of Systems Const: Denies: fever(s) ENMT: Denies: throat pain Card: Denies: chest pain or palpitations Resp: Denies: dyspnea, productive cough or non-productive cough GI: Reports: vomiting; Denies: coffee ground emesis, diarrhea, bloating or melena : Reports: flank pain; Denies: difficulty urinating, dysuria or hematuria Musc: Denies: back pain PFSH ED PFSH: Social History Smoking and tobacco status: current every day smoker Physical Exam Const: COMMON NORMALS: no acute distress GENERAL APPEARANCE: cooperative; not ill appearing and not frail appearing HENMT: COMMON NORMALS: normocephalic, atraumatic and Normal external nose present HEAD & SCALP: normocephalic and atraumatic FACE & SINUS: normal facial exam and face symmetric NOSE: Normal external nose present Eye: COMMON NORMALS: Equal, round and reactive pupils present and EOMs intact bilaterally PUPIL: Yes Equal, round and reactive pupils present Neck/C-Spine: GENERAL: Yes trachea midline Chest: CHEST: Yes Symmetrical chest wall rise Resp: COMMON NORMALS: normal respiratory effort, No retractions, No use of accessory muscles and clear to auscultation bilaterally AUSCULTATION: clear to auscultation bilaterally Cardio: COMMON NORMALS: regular rate and regular rhythm RATE: regular rate RHYTHM: regular rhythm GI: COMMON NORMALS: Normal to inspection, nondistended, normoactive bowel sounds present PALPATION: Yes Tenderness to palpation present (GI) Details: RLQ and Yes Guarding due to palpation present (GI) : BLADDER/KIDNEY EXAM: Yes CVA tenderness on the right Back/Pelvis: GENERAL BACK: Yes CVA tenderness Extremity: COMMON NORMALS: no pedal edema Neuro: TRISTA COMA SCALE: document GCS findings Trista coma scale eye opening: Spontaneous [place] coma scale verbal response: Orientated Trista coma scale motor response: Obey commands [place] coma scale total score: 15 SENSORY EXAM: Yes extremities (intact) Psych: COMMON NORMALS: speech normal SPEECH: Yes normal speech Skin: COMMON NORMALS: no rashes or lesions noted GENERAL SKIN EXAM: no rashes or lesions noted Course Vital Signs: Vital signs: Vital Signs Temperature 98.1 F 09/26/22 21:12 Pulse Rate 78 09/26/22 21:12 Respiratory Rate 16 09/26/22 21:12 Blood Pressure 151/93 09/26/22 21:12 Pulse Oximetry 97 09/26/22 21:12 Oxygen Delivery Me thod 09/26/22 21:12 MDM - Abdominal Pain Medical Decision Making White blood cell count is 10. Hemoglobin is 16. BMP and liver enzymes are not remarkable. Leukocyte Estrace is negative. 0-4 whites and reds in urine. Appendix is normal by CT scan. There may be some mild inflammation of the bladder wall, although urinalysis is negative for UTI. He will be allowed home with symptomatic treatment. Lab Data 09/26/22 23:58 09/26/22 23:58 Labs/Radiology: Radiology Impressions Abdomen/Pelvis CT 09/27/22 00:05 IMPRESSION: 1. Normal appendix. 2. No free air or significant bowel distention. 3. Possible mild urinary bladder wall thickening, see above. 4. No hydronephrosis of either kidney. No visible ureteral calculus. 5. Other findings discussed above. Laboratory Results WBC 10.0 10^3/uL (4.0-10.0) 09/26/22 23:58 RBC 5.72 10^6/uL (4.1-5.3) H 09/26/22 23:58 Hgb 15.9 g/dL (11.7-16.6) 09/26/22 23:58 Hct 48.9 % (42.0-52.0) 09/26/22 23:58 MCV 85.5 fl (80-94) 09/26/22 23:58 MCH 27.8 pg (28.0-34.0) L 09/26/22 23:58 MCHC 32.5 g/dL (30.0-36.0) 09/26/22 23:58 RDW 13.5 % (12.1-15.1) 09/26/22 23:58 Plt Count 291 10^3/cmm (130-400) 09/26/22 23:58 MPV 9.9 fL (7.4-10.4) 09/26/22 23:58 Neut % (Auto) 59.4 % 09/26/22 23:58 Lymph % (Auto) 30.4 % 09/26/22 23:58 [place] % (Auto) 7.4 % 09/26/22 23:58 Eos % (Auto) 1.7 % 09/26/22 23:58 Baso % (Auto) 0.7 % 09/26/22 23:58 Neut # (Auto) 5.91 10^3/uL (1.8-7.7) 09/26/22 23:58 Lymph # (Auto) 3.0 10^3/uL (0.8-4.8) 09/26/22 23:58 Miner # (Auto) 0.7 10^3/uL (0.2-0.9) 09/26/22 23:58 Eos # (Auto) 0.2 10^3/uL (0.0-0.8) 09/26/22 23:58 Baso # (Auto) 0.1 10^3/uL (0.0-0.1) 09/26/22 23:58 Nucleated RBC % (auto) 0 % 09/26/22 23:58 Nucleated RBCs # 0.0 /100WBC 09/26/22 23:58 Sodium 137 mmol/L (136-145) 09/26/22 23:58 Potassium 4.0 mmol/L (3.5-5.1) 09/26/22 23:58 Chloride 99 mmol/L (98-107) 09/26/22 23:58 Carbon Dioxide 26 mmol/L (22-29) 09/26/22 23:58 Anion Gap 16.0 (5-19) 09/26/22 23:58 BUN 22 mg/dL (6-20) H 09/26/22 23:58 Creatinine 0.8 mg/dL (0.7-1.2) 09/26/22 23:58 GFR Calculation 110.0 mL/min (90-130) 09/26/22 23:58 Glucose 105 mg/dL (65-115) 09/26/22 23:58 Calculated Osmolality 288 mOsm/kg (285-295) 09/26/22 23:58 Calcium 9.4 mg/dL (8.5-10.5) 09/26/22 23:58 Total Bilirubin 0.2 mg/dL (0.15-1.2) 09/26/22 23:58 AST 12 U/L (0-40) 09/26/22 23:58 ALT 13 U/L (0-41) 09/26/22 23:58 Alkaline Phosphatase 88 U/L (40-130) 09/26/22 23:58 Total Protein 7.5 g/dL (6.6-8.7) 09/26/22 23:58 Albumin 4.2 g/dL (3.5-5.2) 09/26/22 23:58 Globulin 3.3 g/dL (1.3-4.6) 09/26/22 23:58 Lipase 23 U/L (13-60) 09/26/22 23:58 Urine Color Yellow (Yellow) 09/26/22 23:51 Urine Appearance Clear (CLEAR) 09/26/22 23:51 Urine pH 6.5 (5-7) 09/26/22 23:51 Ur Specific [place] 1.005 (1.005-1.030) 09/26/22 23:51 Urine Protein Neg (Negative) 09/26/22 23:51 Urine Glucose (UA) Norm (Normal) 09/26/22 23:51 Urine Ketones Negative (Negative) 09/26/22 23:51 Urine Blood 2+ (Negative) H 09/26/22 23:51 Urine Nitrate Negative (Negative) 09/26/22 23:51 Urine Bilirubin Neg (Negative) 09/26/22 23:51 Urine Urobilinogen Neg mg/dL (Negative) 09/26/22 23:51 Ur Leukocyte Esterase Negative (Negative) 09/26/22 23:51 Urine RBC 0-4 /hpf (0-2) H 09/26/22 23:51 Urine WBC 0-4 /hpf (0-5) H 09/26/22 23:51 Ur Squamous Epith Cells None /hpf (0-5) 09/26/22 23:51 Amorphous Sediment Not Reportable 09/26/22 23:51 Urine Bacteria None /hpf (NONE) 09/26/22 23:51 Discharge Plan Discharge Patient Disposition: Home Clinical Impression: Abdominal pain Qualifiers: Abdominal location: right lower quadrant Qualified Code(s): R10.31 - Right lower quadrant pain Condition: Stable Prescriptions: New ondansetron 4 mg film 4 mg PO DAILY PRN (Reason: nausea and vomiting) Qty: 10 0RF Continued hydrocodone-acetaminophen 5-325 mg tablet 1 tab PO Q6H PRN (Reason: pain (scale score 7-10)) Qty: 7 0RF No Action neomycin-polymyxin B-dexameth [Maxitrol] 3.5mg/mL-10,000 unit/mL-0.1 % drops,suspension 2 drp ophthalmic (eye) QID 7 Days Qty: 5 0RF Rx Instructions: Route-Ears to treat Otits Externa diclofenac potassium 50 mg tablet 50 mg PO TID Qty: 15 0RF tizanidine 4 mg tablet 4 mg PO TID Qty: 15 0RF Discharge Orders: Discharge ED (Routine); Ordered 09/27/22 Ordered By: Catrachito James Discharge Diet: Advance as tolerated and Clear Liquid Discharge Activity: Increase activity as tolerated Activity Restrictions/Additional Instructions: Return for worsening pain despite treatment, fever greater than 100, vomiting liquids or medications, other concerning symptoms. See your doctor in follow-up. 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
[2022-09-27 00:23] LABS: Add Urine Culture? No; RBC Urine 0-4 /hpf (0-2); WBC Urine 0-4 /hpf (0-5)
[2022-09-27 00:36] LABS: Alanine Aminotransferase 13 U/L (0-41); Albumin Level 4.2 g/dL (3.5-5.2); Alkaline Phosphatase 88 U/L (40-130); Aspartate Amino Transferase 12 U/L (0-40); Blood Urea Nitrogen 22 mg/dL (6-20); Calcium 9.4 mg/dL (8.5-10.5); Carbon Dioxide 26 mmol/L (22-29); Chloride 99 mmol/L (98-107); Globulin 3.3 g/dL (1.3-4.6); Glucose 105 mg/dL (65-115); Lipase 23 U/L (13-60); Osmolality Calculated 288 mOsm/kg (285-295); Sodium 137 mmol/L (136-145); Total Bilirubin 0.2 mg/dL (0.15-1.2); Total Protein 7.5 g/dL (6.6-8.7)
[2022-09-27] MEDS: HYDROmorphone 1 mg/mL INJ 1 mL IVP (01:09)
[2022-09-27] MEDS: ketorolac 30 mg/mL INJ 15 MG IVP (02:09)
== END 2022-09-27 02:10 | disposition home or self-care (01) ==
PROVIDERS: Physician Assistant; Emergency Provider Emergency Medicine
DX: R10.31 Right lower quadrant pain (principal)
CPT/HCPCS: 74177; 80053; 81001; 81003; 83690; 85025; 96361; 96374; 96375; 99285; J1170; J1885; J2270; J2405; J7030; Q9967

== ENCOUNTER 2023-08-26 09:43 | Emergency (ER) | payer SELFPAY ==
[2023-08-26 09:52] VITALS: BP 150/98; PULSE 72; RESP 17; TEMP 36.8; O2SAT 96; BMI 32.4
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
--- NOTE | 2023-08-26 10:00 | ED_ITS ---
HPI - Wound/Laceration General: Chief Complaint: Wound/Laceration Stated Complaint: left hand finger cut Time Seen by Provider: 08/26/23 09:49 Source: patient Mode of arrival: ambulatory History of Present Illness: 38-year-old male with a left index finger laceration while using a drill. Tetanus up-to-date no active bleeding patient able to flex and extend with passive and active range of motion able to flex and extend against resistance Onset (ago): minute(s) Location: other (Left index finger) Place: work Patient tetanus UTD: Yes Context: accidental Associated symptoms: Denies chills or fever(s) Treatments prior to arrival: bandage Review of Systems Const: Denies: fever(s) or chills Card: Denies: chest pain Resp: Denies: dyspnea GI: Denies: abdominal pain : Denies: dysuria, urinary frequency or urinary urgency Musc: Denies: neck pain or back pain Skin/Breast: Denies: rash PFSH ED PFSH: Social History Smoking and tobacco/nicotine status: current every day tobacco/nicotine user Physical Exam Const: COMMON NORMALS: no acute distress GENERAL APPEARANCE: cooperative and comfortable ORIENTATION/CONSCIOUSNESS: Yes awake, Yes oriented to person, Yes oriented to place and Yes oriented to time HENMT: COMMON NORMALS: normocephalic, atraumatic and hearing grossly normal bilaterally HEAD & SCALP: normocephalic and atraumatic Extremity: OTHER: Laceration of the dorsum of the left index finger just proximal to the PIP joint patient is able to flex and extend passively and against resistance without any deficits. No active bleeding. Neuro: SENSORIUM/ORIENTATION: Yes oriented to person, Yes oriented to place and Yes oriented to time Skin: COMMON NORMALS: no rashes or lesions noted GENERAL SKIN EXAM: no rashes or lesions noted Procedures Laceration Laceration 1: Site: hand (Index finger) Side (If applicable): left Description: linear and irregular Depth: simple, single layer Local Anesthetic: lidocaine 1% (Digital nerve block) Pre-repair: irrigated extensively and deep structures intact Skin layer closed with: nylon Size (cm): 4-0 Number of sutures: 3 Technique: simple, interrupted Nerve Block Nerve Block 1: Time out performed: Yes Local Anesthetic: lidocaine 1% Amount of anesthesia used (mL): 3 Side: left Nerve Blocks: digital Procedure Successful: Yes Patient Tolerated Procedure: well Complications: none Course Vital Signs: Vital signs: Vital Signs Temperature 98.3 F 08/26/23 09:52 Pulse Rate 72 08/26/23 09:52 Respiratory Rate 17 08/26/23 09:52 Blood Pressure 150/98 08/26/23 09:52 Pulse Oximetry 96 08/26/23 09:52 Oxygen Delivery Me thod Room Air 08/26/23 09:52 MDM - Wound/Laceration Medical Decision Making X-rays negative wound care instructions given discharge home sutures removed and 10 days return if has further problems. Medical Records I reviewed the patient's medical records. All radiology interpretation(s) finalized by discharge Discharge Plan Discharge Patient Disposition: Home Clinical Impression: Laceration Condition: Stable Prescriptions: New amoxicillin-pot clavulanate 875-125 mg tablet 1 tab PO BID 5 Days Qty: 10 0RF mupirocin 2 % ointment 1 applic topical DAILY Qty: 15 0RF No Action Tylenol Ex Str Rapid Release 500 mg Tablet 1,500 - 2,000 mg PO Q6H PRN (Reason: Pain) albuterol sulfate 90 mcg/actuation HFA aerosol inhaler 2 puff INHALATION Q4H PRN (Reason: Shortness Of Breath) Discharge Orders: Discharge ED (Routine); Ordered 08/26/23 Ordered By: Manuel Lipscomb Discharge Diet: Usual diet Discharge Activity: Increase activity as tolerated Patient Instructions: Laceration (ED), Opioid Safety, Pain Management Activity Restrictions/Additional Instructions: Remove sutures with your primary care doctor in approximately 10 days. apply topical antibiotic ointment once daily keep wound clean and dry Coding Level of Care Code ED [employer] Operator for Bettina Zapata
== END 2023-08-26 11:10 | disposition home or self-care (01) ==
PROVIDERS: Emergency Provider Family Medicine
DX: S61.211A Laceration without foreign body of left index finger without damage to nail, initial encounter (principal); F17.210 Nicotine dependence, cigarettes, uncomplicated; W29.8XXA Contact with other powered hand tools and household machinery, initial encounter
CPT/HCPCS: 12001; 73140; 99283

== ENCOUNTER 2025-10-14 16:46 | Emergency (ER) | payer SELFPAY ==
[2025-10-14 16:59] VITALS: BP 131/85; PULSE 79; TEMP 36.5; O2SAT 98; BMI 31.7
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
--- OUTSIDE RECORDS SUMMARY | 2025-10-14 21:27 | XMS_ITS | Clinical Summary ---
Author Organization [facility] Address [address] [place] [address] Phone Care Team Providers Care Sprayer Hand Name Role Phone Nathen Carter NP Primary Care Provider [phone] Allergies No known active allergies Medications No known medications Active Problems Problem Noted Date Diagnosed Date Foreign body of right forearm with infection Abscess of bursa of left wrist 06/23/2020 Family History Medical History Relation Name Comments Osteoporosis Neg Hx Social History Tobacco Use Types Packs/Day Years Used Date Smoking Tobacco: Every Day Cigarettes 1 12 Smokeless Tobacco: Current Chew Alcohol Use Standard Drinks/Week Comments Never 0 (1 standard drink = 0.6 oz pur e alcohol) Sex and Gender Information Value Date Recorded Sex Assigned at Not on file Legal Sex Male 3:50 AM CDT Gender Identity Not on file Sexual Orientation Not on file Last Filed Vital Signs Vital Sign Reading Time Taken Comments Blood Pressure 133/78 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 Pulse 80 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 Temperature 36.5 C (97.7 F) 08/31/2020 11:40 AM CDT Respiratory Rate 16 08/31/2020 11:40 AM CDT Oxygen Saturation 98% 08/31/2020 11:40 AM CDT Inhaled Oxygen Concentration - - Weight 74.8 kg (165 lb) 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 Height 165.1 cm (5' 5 ) 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 Body Mass Index 27.46 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 Plan of Treatment Health Maintenance Due Date Last Done Comments DTAP/TDAP/TD VACCINES (1 - Tdap) 2006 HEPATITIS B VACCINES (1 of 3 - 19+ 3-dose series) 07/2006 INFLUENZA VACCINE (#1) 2025 HPV VACCINES (No Doses Required) Completed Advance Directives For more information, please contact: [phone] * Full Code (Latest Code Status on File) Date Activated Date Inactivated Comments 08/28/2020 4:49 PM 08/31/2020 4:12 PM * Full Code Date Activated Date Inactivated Comments 05/09/2020 8:58 AM 05/09/2020 4:08 PM * Full Code Date Activated Date Inactivated Comments 05/09/2020 8:39 AM 05/09/2020 8:58 AM Care Teams Sprayer Hand Relationship Specialty Start Date End Date Nathen Carter NP [address] [address] PCP - General NURSE PRACTITIONER 05/05/20
--- OUTSIDE RECORDS SUMMARY | 2025-10-14 21:27 | XMS_ITS | Clinical Summary ---
Author Organization [facility] Address [address] Ortiz: Epic Prelude ADT [place] [address] Care Team Providers Care Palliative Care Specialist Name Role Phone Nathen Carter NP Primary Care Provider [phone] Allergies No known active allergies Medications No known medications Active Problems Problem Noted Date Diagnosed Date Foreign body of right forearm with infection Abscess of bursa of left wrist 06/23/2020 Family History Medical History Relation Name Comments Osteoporosis Neg Hx Social History Tobacco Use Types Packs/Day Years Used Date Smoking Tobacco: Every Day Cigarettes Smokeless Tobacco: Current Alcohol Use Standard Drinks/Week Comments Never 0 (1 standard drink = 0.6 oz pur e alcohol) Sex and Gender Information Value Date Recorded Sex Assigned at Not on file 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 Gender Identity Not on file Sexual Orientation Not on file Last Filed Vital Signs Vital Sign Reading Time Taken Comments Blood Pressure 136/90 06/10/2022 8:42 PM CDT Pulse 84 06/10/2022 8:42 PM CDT Temperature 36.6 C (97.9 F) 06/10/2022 8:42 PM CDT Respiratory Rate 18 06/10/2022 8:42 PM CDT Oxygen Saturation 96% 06/10/2022 8:42 PM CDT Inhaled Oxygen Concentration - - Weight 86.2 kg (190 lb) 06/10/2022 8:42 PM CDT Height 165.1 cm (5' 5 ) 06/10/2022 8:42 PM CDT Body Mass Index 31.62 06/10/2022 8:42 PM CDT Plan of Treatment Health Maintenance Due Date Last Done Comments DTAP/TDAP/TD VACCINES (1 - Tdap) 2006 HEPATITIS B VACCINES (1 of 3 - 19+ 3-dose series) 07/2006 INFLUENZA VACCINE (#1) 2025 HPV VACCINES (No Doses Required) Completed Care Teams Palliative Care Specialist Relationship Specialty Start Date End Date Nathen Carter NP [address] [place] [address] PCP - General NURSE PRACTITIONER 05/05/20
== END 2025-10-14 18:55 | disposition home or self-care (01) ==
PROVIDERS: Emergency Provider Physician Assistant
DX: S70.02XA Contusion of left hip, initial encounter (principal); S80.02XA Contusion of left knee, initial encounter; V89.2XXA Person injured in unspecified motor-vehicle accident, traffic, initial encounter; F17.290 Nicotine dependence, other tobacco product, uncomplicated
CPT/HCPCS: 73502; 73562; 99284